=== PATIENT | male | born 1960 | race Caucasian/White ===

== ENCOUNTER 2022-09-04 11:07 | Inpatient (IN) | payer BC, MEDICARE ==
[2022-09-04] MEDS ORDERED: Vancomycin 1 GM VIAL ONE (11:29)
[2022-09-04 12:54] LABS: SARS-CoV-2 NAA Rapid Test DETECTED (NotDetected)
[2022-09-04] MEDS ORDERED: Lorazepam 2 MG/ML VIAL SLOW IVP PRN (14:42)
[2022-09-04] MEDS ORDERED: Electrolyte Replacement Protocol 1 EACH FS SCH (14:45)
[2022-09-04] MEDS ORDERED: IPRATROPIUM INH PRN (14:53)
[2022-09-04] MEDS ORDERED: [UNRECOGNIZED DRUG - OTHER] INH PRN (14:53)
[2022-09-04] MEDS ORDERED: ALBUTEROL SULFATE INH PRN (14:53)
[2022-09-04 15:47] LABS: Magnesium 2.1 mg/dL (1.6-2.6); Phosphorus 3.1 mg/dL (2.3-4.7)
[2022-09-04] MEDS ORDERED: Nicotine 14 MG PATCH ONE (16:25)
[2022-09-04 18:14] VITALS: BMI 20.3
[2022-09-04] MEDS: Lorazepam 1 MG TAB PO SCH ×2 (18:24→20:28)
[2022-09-04] MEDS ORDERED: Ipratropium/Albuterol Sulfate 4 GM AER IH PRN (18:57)
[2022-09-04] MEDS: Albuterol 200 PUFF (6.7GM INHALER) INH SCH (19:00)
[2022-09-04] MEDS: D5W-AA 4.25% with LYTES 1,000 ML IV SCH (20:27)
[2022-09-04] MEDS: Pyridostigmine Bromide IR 60 MG TAB PO SCH (20:28)
[2022-09-04] MEDS ORDERED: Ketorolac Tromethamine 30 MG/ML VIAL IVP SCH ×2 (21:15→23:59)
[2022-09-05] MEDS: Lorazepam 1 MG TAB PO SCH ×4 (03:00→21:45)
[2022-09-05] MEDS: Ketorolac Tromethamine 30 MG/ML VIAL IVP SCH ×5 (04:13→21:44)
[2022-09-05 08:41] LABS: #Basophils 0.1 10x3/uL (0.0-0.2); #Eosinphils 0.1 10x3/uL (0.0-0.5); #Monocytes 0.9 10x3/uL (0.0-1.1); #Neutrophils 3.7 10x3/uL (1.5-8.4); %Basophils 0.8 % (0.0-2.0); %Monocytes 13.5 % (0.0-10.0); %Neutrophils 57.5 % (40.0-75.0); Hemoglobin 13.6 g/dL (13.5-17.5); Mean Corpuscular HGB CONC 34.9 g/dL (32.0-36.0); Mean Corpuscular Hemoglobin 32.9 pg (27.0-33.0); Mean Corpuscular Volume 94.4 fl (81.2-95.1); Mean Platelet Volume 9.5 fl (7.4-10.4); Platelet Count 178 10x3/uL (150-450); RBC Distribution Width 12.1 % (11.5-14.5); Red Blood Cell (RBC) Count 4.13 10x6/uL (4.32-5.72); White Blood Cell (WBC) Count 6.5 10x3/uL (3.5-10.5)
[2022-09-05] MEDS: Ventolin HFA Inhaler 60 PUFF INHALER INH SCH ×4 (08:47→20:00)
[2022-09-05] MEDS: Mometasone/Formoterol 200/5 60 PUFF INH SCH ×2 (08:50→20:00)
[2022-09-05 08:58] LABS: Anion Gap 13 mmol/L (10-20); BUN (Urea Nitrogen) 13 mg/dL (8.4-25.7); Calc. Creatinine Clearance 69 mL/min (70-130); Calcium 9.1 mg/dL (7.8-10.44); Carbon Dioxide 24 mmol/L (23-31); Chloride 100 mmol/L (98-107); Estimated GFR 91; Glucose 95 mg/dL (80-115); Potassium 4.3 mmol/L (3.5-5.1); Sodium 133 mmol/L (136-145)
[2022-09-05] MEDS ORDERED: IMMUNE GLOBULIN IVPB SCH (10:00)
[2022-09-05] MEDS: Pyridostigmine Bromide IR 60 MG TAB PO SCH ×2 (10:11→23:50)
[2022-09-05] MEDS: Thiamine HCl 200 MG/2 ML VIAL SLOW IVP SCH (10:11)
[2022-09-05] MEDS: Multivit, Therapeutic 1 TAB PO SCH (10:25)
[2022-09-05] MEDS: Folic Acid 1 MG TAB PO SCH (10:25)
[2022-09-05] MEDS: Ascorbic Acid 500 mg Chewable Tablet PO SCH (10:25)
[2022-09-05] MEDS: D5W-AA 4.25% with LYTES 1,000 ML IV SCH ×2 (10:25→23:50)
[2022-09-05] MEDS: Zinc Sulfate 220 MG CAP PO SCH (10:25)
[2022-09-05] MEDS ORDERED: Lorazepam 1 MG TAB PO PRN (14:42)
[2022-09-05] MEDS: Nicotine 14 MG PATCH TD SCH (15:20)
[2022-09-05] MEDS: Benzonatate 100 MG CAP PO PRN (21:44)
[2022-09-06 06:06] LABS: Hemoglobin 12.7 g/dL (13.5-17.5); Mean Corpuscular HGB CONC 34.5 g/dL (32.0-36.0); Mean Corpuscular Hemoglobin 32.4 pg (27.0-33.0); Mean Corpuscular Volume 93.9 fl (81.2-95.1); Mean Platelet Volume 9.5 fl (7.4-10.4); Platelet Count 165 10x3/uL (150-450); RBC Distribution Width 11.9 % (11.5-14.5); Red Blood Cell (RBC) Count 3.92 10x6/uL (4.32-5.72); White Blood Cell (WBC) Count 4.7 10x3/uL (3.5-10.5)
[2022-09-06 06:22] LABS: Anion Gap 11 mmol/L (10-20); BUN (Urea Nitrogen) 9 mg/dL (8.4-25.7); Calc. Creatinine Clearance 70 mL/min (70-130); Calcium 8.7 mg/dL (7.8-10.44); Carbon Dioxide 26 mmol/L (23-31); Chloride 99 mmol/L (98-107); Estimated GFR 92; Glucose 89 mg/dL (80-115); Potassium 3.9 mmol/L (3.5-5.1); Sodium 132 mmol/L (136-145)
[2022-09-06 06:31] LABS: MDiff Complete? YES
[2022-09-06 06:35] LABS: Band 2 % (5-11); Eosinophils 5 % (0-10); Lymphocytes 29 % (21-51); Monocytes 15 % (0-10); Neutrophil 48 % (42-75)
[2022-09-06 06:36] LABS: Platelet Morphology Comment Appears Adequate
[2022-09-06] MEDS: Lorazepam 1 MG TAB PO SCH ×2 (06:47→08:45)
[2022-09-06] MEDS: Ketorolac Tromethamine 30 MG/ML VIAL IVP SCH ×4 (06:47→20:57)
[2022-09-06] MEDS: Mometasone/Formoterol 200/5 60 PUFF INH SCH ×2 (08:08→19:50)
[2022-09-06] MEDS: Ventolin HFA Inhaler 60 PUFF INHALER INH SCH ×3 (08:10→19:50)
[2022-09-06] MEDS: Thiamine HCl 200 MG/2 ML VIAL SLOW IVP SCH (08:43)
[2022-09-06] MEDS: Pyridostigmine Bromide IR 60 MG TAB PO SCH ×2 (08:44→20:57)
[2022-09-06] MEDS: Folic Acid 1 MG TAB PO SCH (08:44)
[2022-09-06] MEDS: Multivit, Therapeutic 1 TAB PO SCH (08:45)
[2022-09-06] MEDS: Ascorbic Acid 500 mg Chewable Tablet PO SCH (08:45)
[2022-09-06] MEDS: Zinc Sulfate 220 MG CAP PO SCH (08:45)
[2022-09-06] MEDS ORDERED: Ondansetron PF 4 MG/2 ML Vial IVP PRN (09:36)
[2022-09-06] MEDS: IMMUNE GLOBULIN IVPB SCH (10:10)
[2022-09-06] MEDS: Benzonatate 100 MG CAP PO PRN (10:27)
[2022-09-06] MEDS: D5W-AA 4.25% with LYTES 1,000 ML IV SCH (14:22)
[2022-09-06] MEDS: Nicotine 14 MG PATCH TD SCH (15:23)
[2022-09-06] MEDS: Lorazepam 1 MG TAB PO PRN (20:57)
[2022-09-07] MEDS: Ketorolac Tromethamine 30 MG/ML VIAL IVP SCH ×4 (05:07→22:53)
[2022-09-07] MEDS: D5W-AA 4.25% with LYTES 1,000 ML IV SCH ×2 (05:11→16:11)
[2022-09-07 06:14] LABS: Hemoglobin 12.8 g/dL (13.5-17.5); Mean Corpuscular HGB CONC 34.9 g/dL (32.0-36.0); Mean Corpuscular Hemoglobin 32.6 pg (27.0-33.0); Mean Corpuscular Volume 93.4 fl (81.2-95.1); Mean Platelet Volume 9.4 fl (7.4-10.4); Platelet Count 183 10x3/uL (150-450); RBC Distribution Width 11.8 % (11.5-14.5); Red Blood Cell (RBC) Count 3.93 10x6/uL (4.32-5.72); White Blood Cell (WBC) Count 4.4 10x3/uL (3.5-10.5)
[2022-09-07 06:27] LABS: Anion Gap 10 mmol/L (10-20); BUN (Urea Nitrogen) 10 mg/dL (8.4-25.7); Calc. Creatinine Clearance 74 mL/min (70-130); Calcium 8.6 mg/dL (7.8-10.44); Carbon Dioxide 26 mmol/L (23-31); Chloride 100 mmol/L (98-107); Estimated GFR 97; Glucose 78 mg/dL (80-115); Potassium 4.2 mmol/L (3.5-5.1); Sodium 132 mmol/L (136-145)
[2022-09-07 06:38] LABS: Eosinophils 4 % (0-10); Lymphocytes 25 % (21-51); Monocytes 23 % (0-10)
[2022-09-07 06:40] LABS: MDiff Complete? YES; Neutrophil 48 % (42-75)
[2022-09-07 06:41] LABS: Platelet Morphology Comment Appears Adequate; RBC Morphology Normal
[2022-09-07] MEDS: Mometasone/Formoterol 200/5 60 PUFF INH SCH (08:05)
[2022-09-07] MEDS: Ventolin HFA Inhaler 60 PUFF INHALER INH SCH ×3 (08:06→17:17)
[2022-09-07] MEDS: Zinc Sulfate 220 MG CAP PO SCH (10:15)
[2022-09-07] MEDS: Pyridostigmine Bromide IR 60 MG TAB PO SCH ×2 (10:18→22:53)
[2022-09-07] MEDS: Benzonatate 100 MG CAP PO PRN (10:19)
[2022-09-07] MEDS: Thiamine HCl 200 MG/2 ML VIAL SLOW IVP SCH (10:19)
[2022-09-07] MEDS: Multivit, Therapeutic 1 TAB PO SCH (10:20)
[2022-09-07] MEDS: Ascorbic Acid 500 mg Chewable Tablet PO SCH (10:20)
[2022-09-07] MEDS: Folic Acid 1 MG TAB PO SCH (10:20)
[2022-09-07] MEDS ORDERED: Lorazepam 0.5 MG TAB PO PRN (14:42)
[2022-09-07] MEDS ORDERED: PRIVIGEN IVPB SCH (15:00)
[2022-09-07] MEDS: IMMUNE GLOBULIN IVPB SCH (15:36)
[2022-09-07] MEDS: Nicotine 14 MG PATCH TD SCH (15:37)
[2022-09-07] MEDS: Lorazepam 1 MG TAB PO PRN (15:42)
[2022-09-07 23:18] VITALS: BP 159/88; TEMP 97.6
[2022-09-08] MEDS ORDERED: Thiamine 100 MG TAB PO SCH (09:00)
== END 2022-09-07 20:45 | disposition home or self-care (01) | DRG 177 ==
LOC: CSHERS 11:07 → CSHTELE 17:52 → OBSVTOIN 09-06 13:33
PROVIDERS: ADMIT Internal Medicine; ATTEND Hospitalist
PROC: 8E0ZXY6 Isolation (ICD-10-PCS; principal; 2022-09-05)
PROC: 30233S1 Transfusion of Nonautologous Globulin into Peripheral Vein, Percutaneous Approach (ICD-10-PCS; 2022-09-05)
DX: U07.1 COVID-19 (principal); G70.01 Myasthenia gravis with (acute) exacerbation; J12.82 Pneumonia due to coronavirus disease 2019; J96.01 Acute respiratory failure with hypoxia; J44.1 Chronic obstructive pulmonary disease with (acute) exacerbation; I69.352 Hemiplegia and hemiparesis following cerebral infarction affecting left dominant side; J44.0 Chronic obstructive pulmonary disease with (acute) lower respiratory infection; F10.10 Alcohol abuse, uncomplicated; R13.10 Dysphagia, unspecified; E78.5 Hyperlipidemia, unspecified; I10 Essential (primary) hypertension; G43.909 Migraine, unspecified, not intractable, without status migrainosus; F17.210 Nicotine dependence, cigarettes, uncomplicated; Z93.1 Gastrostomy status; Z98.890 Other specified postprocedural states; Z88.0 Allergy status to penicillin; Z98.1 Arthrodesis status; Z79.899 Other long term (current) drug therapy; Z71.6 Tobacco abuse counseling; Z71.41 Alcohol abuse counseling and surveillance of alcoholic
CPT/HCPCS: 36415; 71045; 80048; 83735; 84100; 84145; 85025; 86140; 94664; 96365; 96366; 96372; 96375; 96376; 99285; G0378; J1459; J1568; J1650; J1885; J1956; J2405; J3370; J3411